=== PATIENT | male | born 1955 | race Two or more races ===

== ENCOUNTER 2022-01-26 12:28 | Inpatient (IN) | payer OTHER ==
[~2022-01-26] VITALS: Ht 175.3 cm; Wt 77.1 kg
== END 2022-01-30 12:36 | disposition home or self-care (01) | DRG 194 ==
LOC: ER 12:28 → SEC-K 19:14 → SURH 19:14 → MEDI 19:14 → SEC-K 19:32 → SURH 01-27 22:08
PROVIDERS: ADMIT Internal Medicine; ATTEND Internal Medicine
PROC: 3E0F7SF Introduction of Other Gas into Respiratory Tract, Via Natural or Artificial Opening (ICD-10-PCS; principal; 2022-01-26)
DX: J10.1 Influenza due to other identified influenza virus with other respiratory manifestations (principal); J44.1 Chronic obstructive pulmonary disease with (acute) exacerbation; J69.0 Pneumonitis due to inhalation of food and vomit; R06.02 Shortness of breath; R09.02 Hypoxemia; F17.200 Nicotine dependence, unspecified, uncomplicated; Z20.822 Contact with and (suspected) exposure to COVID-19